=== PATIENT | male | born 1950 | race Caucasian/White ===

== ENCOUNTER 2016-11-12 09:43 | Observation (INO) | payer BC ==
[2016-11-12 10:56] LABS: Mean Cell Volume 84.4 fl (78-100); Mean Platelet Volume 9.4 fl (6-9.5); Platelet Count 216 K/mm3 (150-450); Red Blood Count 5.71 M/mm3 (4.1-5.6); Red Cell Distribution Width 14.4 % (11.5-14.0); White Blood Count 7.5 K/mm3 (4.0-10.5)
[2016-11-12] MEDS ORDERED: LOPRESSOR 5 MG/5 ML INJECTION IV ONE (11:34)
[2016-11-12 11:54] LABS: ALBUMIN 4.3 g/dL (3.4-5.0); ANION GAP 18.8 MEQ/L (5-15); BILIRUBIN,TOTAL 1.2 mg/dL (0.2-1.0); Carbon Dioxide 21.5 mEq/L (21-32); Potassium 4.9 mEq/L (3.5-5.1); Total Protein 6.8 gm/dL (6.4-8.2)
[2016-11-12] MEDS ORDERED: Lopressor 25MG Tab PO SCH (13:40)
--- NOTE | 2016-11-12 13:42 | PCM.HP ---
History of Present Illness - Chief Complaint Chief Complaint: palpitations Date: 11/12/16 History of Present Illness: is a 66 year old male. who presented to the clinic today with some intermittent wheezing he was having at night. On further questioning he has been having intermittent palpiations for several years and had an evaluation about 18 months ago with normal Ekg and a stress test with a fixed perfusion deficit. He was to follow up but started stating and aspirin and was felling well so did not come back until today. He was asymptomatic but on exam his HR was about 200. EKg was don with rate of 170 with aflutter. He was thus sent for direct admission for evaluation and rate control. He was not having any chest pain or shortness of breath and was ambulating well. No peripheral edema. Medications & Allergies Home Medications: Home Medication List Apixaban [Eliquis] 5 mg PO BID #60 tablet 11/12/16 [Rx] Lisinopril 10 mg [Zestril 10 MG] 10 mg PO DAILY 11/12/16 [History Confirmed 11/12/16] Metoprolol Tartrate 25 mg [Lopressor 25MG Tab] 25 mg PO BID #60 tab [Rx] Omeprazole 40 mg PO DAILY 11/12/16 [History Confirmed 11/12/16] Simvastatin [Zocor] 20 mg PO UD 11/12/16 [History Confirmed 11/12/16] Allergies/Adverse Reactions: Allergies Allergy/AdvReac Type Severity Reaction Status Date / Time No Known Drug Allergies Allergy Unverified 11/12/16 10:21 - Past Medical History Past Medical History: Yes Cardiac History: Arrhythmia, High Cholesterol, Hypertension Respiratory History: Sleep Apnea Musculoskelatal History: No Pertinent History GI Medical History: GERD History: No Pertinent History Pyscho-Social History: No Pertinent History Male Reproductive Disorders: Other Comment: testicular cyst removal. right hand cyst removal. right knee maniscus tear repair - Past Surgical History Past Surgical History: Yes Neuro Surgical History: No Pertinent History Cardiac History: No Pertinent History Respiratory Surgery: No Pertinent History GI Surgical History: Appendectomy Genitourinary Surgical Hx: No Pertinent History Musculskeletal Surgical Hx: Other Male Surgical History: Other Other Surgical History: testicular cyst removal. right hand cyst removal. right knee maniscus tear repair - Social History Smoking Status: Former smoker Alcohol: Occasionally Drug Use: none - Physical Exam Vital Signs: Vital Signs - 24 hr Temp Pulse Resp BP Pulse Ox 11/12/16 12:00 98.0 F 80 20 122/75 98 11/12/16 10:15 97.9 F 160 H 20 117/94 96 Oxygen-Last 24 hours O2 Percentage 2 Liters = 28% General Appearance: no apparent distress, alert Neurologic Exam: alert, oriented x 3, cooperative, normal mood/affect, nml cerebellar function, nml station & gait, sensation nml, No motor deficits Eye Exam: PERRL/EOMI, eyes nml inspection Ears, Nose, Throat Exam: normal ENT inspection, TMs normal, pharynx normal, moist mucous membranes Neck Exam: normal inspection, non-tender, supple, full range of motion Respiratory Exam: normal breath sounds, lungs clear, No respiratory distress Cardiovascular Exam: normal heart sounds, normal peripheral pulses, tachycardia , No murmur, No edema Gastrointestinal/Abdomen Exam: soft, normal bowel sounds, No tenderness, No mass Back Exam: normal inspection, normal range of motion, No CVA tenderness, No vertebral tenderness Extremity Exam: normal inspection, normal range of motion, pelvis stable Skin Exam: normal color, warm, dry, No rash Lymphatic Exam: No adenopathy Results - Labs Lab/Micro Results: Lab Results-Last 24 Hours 11/12/16 11/12/16 11/12/16 Range/Units 10:20 10:30 10:30 WBC 7.5 (4.0-10.5) K/mm3 RBC 5.71 H (4.1-5.6) M/mm3 Hgb 16.0 (12.5-18.0) gm/dl Hct 48.2 (42-50) % MCV 84.4 (78-100) fl MCH 28.0 (26-32) pg MCHC 33.2 (32-36) g/dl RDW 14.4 H (11.5-14.0) % Plt Count 216 (150-450) K/mm3 MPV 9.4 (6-9.5) fl Sodium (136-145) mEq/L Potassium (3.5-5.1) mEq/L Chloride (98-107) mEq/L Carbon Dioxide (21-32) mEq/L Anion Gap (5-15) MEQ/L BUN (9-20) mg/dL Creatinine (0.55-1.30) mg/dl Estimated GFR ML/MIN Glucose (70-110) MG/DL Calcium (8.5-10.1) mg/dL Magnesium 1.9 (1.8-2.4) mg/dL Total Bilirubin (0.2-1.0) mg/dL AST (15-37) U/L ALT (12-78) U/L Alkaline Phosphatase (46-116) U/L Troponin I 0.022 (0.000-0.056) ng/ml Serum Total Protein (6.4-8.2) gm/dL Albumin (3.4-5.0) g/dL TSH 3rd Generation (0.358-3.740) mIU/L 11/12/16 Range/Units 10:30 WBC (4.0-10.5) K/mm3 RBC (4.1-5.6) M/mm3 Hgb (12.5-18.0) gm/dl Hct (42-50) % MCV (78-100) fl MCH (26-32) pg MCHC (32-36) g/dl RDW (11.5-14.0) % Plt Count (150-450) K/mm3 MPV (6-9.5) fl Sodium 142 (136-145) mEq/L Potassium 4.9 (3.5-5.1) mEq/L Chloride 107 (98-107) mEq/L Carbon Dioxide 21.5 (21-32) mEq/L Anion Gap 18.8 H (5-15) MEQ/L BUN 32 H (9-20) mg/dL Creatinine 1.33 H (0.55-1.30) mg/dl Estimated GFR 57 ML/MIN Glucose 104 (70-110) MG/DL Calcium 9.1 (8.5-10.1) mg/dL Magnesium (1.8-2.4) mg/dL Total Bilirubin 1.20 H (0.2-1.0) mg/dL AST 27 (15-37) U/L ALT 31 (12-78) U/L Alkaline Phosphatase 81 (46-116) U/L Troponin I (0.000-0.056) ng/ml Serum Total Protein 6.8 (6.4-8.2) gm/dL Albumin 4.3 (3.4-5.0) g/dL TSH 3rd Generation 1.249 (0.358-3.740) mIU/L - Radiology Impressions Radiology Exams & Impressions: Radiology Procedures Category Date Time Status ECHO W/2D AND DOPPLER [US] Routine Exams 11/12/16 13:35 Ordered - Other Procedures and Tests Respiratory Therapy 11/12/16 13:22 EKG ROUTINE Assessment/Plan (1) Atrial flutter Current Visit: Yes Status: Acute Assessment & Plan: he responded to 5mg IV lopressor X 2 and rate returned to the 80's after about 2 hours began to trend back up had flutter with variable block initial troponin was negative will get echo today start eliquis and po metoprolol repeat troponin if remains negative and HR improved to <110 on the po medications will d/c to home We have appointment scheduled with Dr. Aguilera at patient request for 11/20/16 Code(s): I48.92 - UNSPECIFIED ATRIAL FLUTTER
[2016-11-12] MEDS: ELIQUIS PO SCH ×2 (13:56→22:06)
--- NOTE | 2016-11-12 14:00 | PCM.DCORD ---
- Discharge Discharge Date: 11/12/16 Disposition: Home, Self-Care Condition: Stable Prescriptions: New Apixaban [Eliquis] 5 mg PO BID #60 tablet Metoprolol Tartrate 25 mg [Lopressor 25MG Tab] 25 mg PO BID #60 tab Continue Simvastatin [Zocor] 20 mg PO UD Lisinopril 10 mg [Zestril 10 MG] 10 mg PO DAILY Omeprazole 40 mg PO DAILY Discontinued Aspirin 81 mg PO DAILY Naproxen 500 mg PO DAILY Follow up with: RIKY OLMOS [Primary Care Provider] - 1 Week BRAULIO BRAVO MD [NON-STAFF PHY W/O PRIVILEGES] - 1 Week
[2016-11-12] MEDS ORDERED: Lopressor 25MG Tab PO ONE (14:55)
[2016-11-12] MEDS ORDERED: Lactated Ringers 1,000 ML IV SCH (15:00)
--- NOTE | 2016-11-12 15:45 | ECHO ---
DATE OF PROCEDURE: 11/12/2016 CLINICAL INFORMATION: Atrial flutter. The M-mode 2D, and Doppler echocardiogram including color flow Doppler shows normal contractility of the left ventricle. The ejection fraction is calculated to be 62%. The left ventricle is normal in size with a dimension of 4.07 cm. The septal wall thickness is normal at 1.1 cm. The left ventricular posterior wall thickness is increased at 1.4 cm. The heart rate is 153 beats/minute. The aortic valve opens well. The mitral valve leaflets appear thickened. There is mild mitral regurgitation. There is mild aortic regurgitation. Left atrium is normal in size with a dimension of 3.9 cm. Intra-atrial septum is intact. The right atrium is normal. The right ventricle is normal. The pulmonic valve is not well visualized. The aortic root is normal at 3.4 cm. There is no pericardial effusion present. There is no thrombus in the left ventricular apex. IMPRESSION: 1) NORMAL CONTRACTILITY OF THE LEFT VENTRICLE. 2) MILD MITRAL REGURGITATION. 3) MILD TRICUSPID REGURGITATION. 4) MILD AORTIC REGURGITATION. 5) THE RIGHT VENTRICULAR SYSTOLIC PRESSURE IS NORMAL.
[2016-11-12] MEDS: CARDIZEM DRIP 100 MG/100 ML D5W 100 ML IV PRN (17:34)
[2016-11-12] MEDS ORDERED: Sodium Chloride 0.9% 500 ML 500 ML IV ONE (23:07)
[2016-11-13] MEDS: CARDIZEM DRIP 100 MG/100 ML D5W 100 ML IV PRN (07:06)
[2016-11-13] MEDS ORDERED: Sodium Chloride 0.9% 1000 ML 1,000 ML IV SCH (07:06)
[2016-11-13] MEDS: ELIQUIS PO SCH (09:55)
[2016-11-13 11:34] VITALS: O2SAT 96
[2016-11-13] MEDS: Cardizem CD 120 MG PO SCH (11:52)
[2016-11-13 11:59] VITALS: PULSE 101
[2016-11-13 12:00] VITALS: BP 128/68
--- NOTE | 2016-11-13 12:46 | PCM.DS ---
Discharge Summary Date of Admission: 11/12/16 09:43 Date of Discharge: 11/12/16 Admitting Physician: RIKY OLMOS Primary Care Provider: RIKY OLMOS Allergies Allergies No Known Drug Allergies Allergy (Unverified 11/12/16 10:21) Hospital Summary - Hospital Course Hospital Course: He presented to the office with some intermittent wheezing was found to have a pulse of about 200. EKG showed Aflutter with rvr at 160's. He was relatively asymptomatic. He was sent for direct admission to ICU. He had troponins trended negative cbc, cmp, tsh, mag unremarkable. He was started on Eliquis. He was given 5mg of metoprolol IV X 2 and improved to rate in the 80's and placed on po metoprolol but returned to the 160's and a second dose did not improve this. He was started on a cardizem gtt at this point metoprolol d/c and bp went low ( he had home lisinopril prior to presentation). He was given an IV fluid bolus. He remained asymptomatic. BP improved and aflutter improved overnight off the gtt but about 4 am returned to the 160's spontaneous. BP was better in am and was restarted gtt the rate was up to 12.5 and he had good control with intermittent spikes but asymptomatic. IT was stopped he was given cardizem 360 mg CD and observed and HR continued to be in the 80's at rest and with light activity would spike with sudden activity. He was set up with Dr. Aguilera cardiology follow up and will continue the cardizem and eliquis return for new or worsening symptoms. Echo was done without significant abnormalities. EKG showed aflutter and was reviewed pre/post rate control - Vitals & Intake/Output Vital Signs: Vital Signs Temperature 97.6 F 11/13/16 10:00 Pulse Rate 101 H 11/13/16 11:59 Respiratory Rate 16 11/13/16 11:59 Blood Pressure 128/68 11/13/16 11:59 O2 Sat by Pulse Oximetry 96 11/13/16 11:59 Oxygen-Last Documented O2 Percentage 2 Liters = 28% Intake & Output: Intake & Output 11/11/16 11/12/16 11/13/16 11/14/16 11:59 11:59 11:59 11:59 Intake Total 2286 Output Total 1590 Balance 696 Weight 87.9 kg 88.2 kg - Lab Result Diagrams: 11/12/16 10:30 11/12/16 10:30 Lab Results-Last 24 Hrs: Lab Results-Last 24 Hours 11/12/16 11/12/16 Range/Units 14:38 17:40 Troponin I 0.035 0.029 (0.000-0.056) ng/ml - Radiology Exams Ordered Rad Exams-Entire Visit: Radiology Procedures Category Date Time Status ECHO W/2D AND DOPPLER [US] Routine Exams 11/12/16 13:35 Draft - Procedures and Test Procedures and Tests throughout Hospitalization: Therapy Orders & Screens 11/12/16 13:22 EKG ROUTINE Comment: Diagnosis: SVT resolved Discharge Exam General Appearance: no apparent distress, alert Neurologic Exam: alert, oriented x 3, cooperative, normal mood/affect, nml cerebellar function, sensation nml, No motor deficits Skin Exam: normal color, warm, dry Eye Exam: PERRL, EOMI, eyes nml inspection Ears, Nose, Throat Exam: normal ENT inspection, pharynx normal, moist mucous membranes Neck Exam: normal inspection, non-tender, supple, full range of motion Respiratory Exam: normal breath sounds, lungs clear, No respiratory distress Cardiovascular Exam: regular rate/rhythm, irregular, No edema Gastrointestinal/Abdomen Exam: soft, No tenderness, No mass Extremity Exam: normal inspection, normal range of motion Back Exam: normal inspection, normal range of motion, No CVA tenderness, No vertebral tenderness Male Genitalia Exam: deferred Rectal Exam: deferred Final Diagnosis/Problem List - Final Discharge Diagnosis/Problem (1) Atrial flutter Current Visit: Yes Status: Acute - Discharge Discharge Date: 11/13/16 Disposition: Home, Self-Care Condition: Stable Prescriptions: New Diltiazem HCl [Diltiazem 24Hr Cd] 360 mg PO DAILY #30 cap.er.24h Pravastatin Sodium 40 mg PO DAILY #30 tablet Continue Omeprazole 40 mg PO DAILY Apixaban [Eliquis] 5 mg PO BID #60 tablet Discontinued Aspirin 81 mg PO DAILY Simvastatin [Zocor] 20 mg PO UD Lisinopril 10 mg [Zestril 10 MG] 10 mg PO DAILY Naproxen 500 mg PO DAILY Follow up with: RIKY OLMOS [Primary Care Provider] - 1 Week BRAULIO AGUILERA MD [NON-STAFF PHY W/O PRIVILEGES] - 11/20/16 9:45 am
== END 2016-11-13 14:15 | disposition home or self-care (01) ==
LOC: ICU 09:43
PROVIDERS: ADMIT Family Medicine; ATTEND Family Medicine
DX: I48.92 Unspecified atrial flutter (principal); I10 Essential (primary) hypertension; G47.30 Sleep apnea, unspecified; K21.9 Gastro-esophageal reflux disease without esophagitis; Z79.899 Other long term (current) drug therapy
CPT/HCPCS: 36415; 80053; 83735; 84443; 84484; 85027; 93005; 93268; 93306; G0378; A9270-GY

== ENCOUNTER 2022-09-01 15:47 | Emergency (ER) | payer BC ==
--- NOTE | 2022-09-01 16:25 | ERPHSYRPT ---
- History of Present Illness Time Seen by Provider: 09/01/22 16:25 Historian: patient, family Exam Limitations: no limitations Patient Subjective Stated Complaint: Pt had a sudden onset of left sided abdominal pain with N&V that he rates 10/10 that radiates to his testicle Triage Nursing Assessment: Pt brought to the ER by his , hypertensive, rates pain as 10/10, worst pain he has ever been in, states the pain didn't begin in his back but it feels like it is going to it now, pulsles normal, skin n/w/d, not tender with palpatation, denies pain with urination, denies issues with stools, N&V today, no history of a kidney stone Physician History: Abrupt onset today of left renal colic. NO hx of kidney stones. Timing/Duration: today Activities at Onset: none Quality: sharpness, stabbing Abdominal Pain Onset Location: LLQ, flank Pain Radiation: groin Severity of Pain-Max: moderate Severity of Pain-Current: moderate Modifying Factors: Improves With: nothing Associated Symptoms: denies symptoms Previous symptoms: no prior history Allergies/Adverse Reactions: No Known Drug Allergies Allergy (Verified 09/01/22 16:11) Home Medications: Lisinopril 20 mg [Zestril 20 MG] 20 mg PO DAILY 09/01/22 [History] PANTOPRAZOLE 40 mg Tablet [Protonix 40MG Tablet] 40 mg PO QAM 09/01/22 [History] Tamsulosin HCl 0.4 mg [Flomax 0.4 MG] 0.4 mg PO DAILY 09/01/22 [History] Vit C/E/Zn/Coppr/Lutein/Zeaxan [Preservision Areds 2 Softgel] 1 each PO DAILY 09/01/22 [History] Hx Influenza Vaccination/Date Given: Yes Hx Pneumococcal Vaccination/Date Given: Yes Travel Risk - International Travel Have you traveled outside of the country in past 3 weeks: No - Coronavirus Screening Are you exhibiting any of the following symptoms?: No Close contact with a COVID-19 positive Pt in past 14-21 Days: No - Vaccine Status Have you recieved a Covid-19 vaccination: No - Review of Systems Constitutional: No Symptoms Eyes: No Symptoms Ears, Nose, & Throat: No Symptoms Respiratory: No Symptoms Cardiac: No Symptoms Abdominal/Gastrointestinal: No Symptoms Genitourinary Symptoms: No Symptoms, Flank Pain Musculoskeletal: No Symptoms Skin: No Symptoms Neurological: No Symptoms Psychological: No Symptoms Endocrine: No Symptoms Hematologic/Lymphatic: No Symptoms Immunological/Allergic: No Symptoms All Other Systems: Reviewed and Negative - Past Medical History Pertinent Past Medical History: Yes Cardiac History: Arrhythmia, High Cholesterol, Hypertension Respiratory History: Sleep Apnea Musculoskeletal History: No Pertinent History GI Medical History: GERD History: No Pertinent History Psycho-Social History: No Pertinent History Male Reproductive Disorders: Other Other Medical History: testicular cyst removal. right hand cyst removal. right knee maniscus tear repair - Past Surgical History Past Surgical History: Yes Neuro Surgical History: No Pertinent History Cardiac: Other Respiratory: No Pertinent History Gastrointestinal: Appendectomy Genitourinary: No Pertinent History Musculoskeletal: Other Male Surgical History: Other Other Surgical History: testicular cyst removal. right hand cyst removal. right knee maniscus tear repair. heart ablasion - Social History Smoking Status: Former smoker Exposure to second hand smoke: No Drug Use: none Patient Lives Alone: No - Nursing Vital Signs Nursing Vital Signs: Initial Vital Signs Temperature 97.4 F 09/01/22 15:59 Pulse Rate 76 09/01/22 15:59 Blood Pressure 180/85 09/01/22 15:59 O2 Sat by Pulse Oximetry 96 09/01/22 15:59 Pain Scale Pain Intensity 4 - Physical Exam General Appearance: moderate distress Eye Exam: PERRL/EOMI Ears, Nose, Throat Exam: normal ENT inspection Neck Exam: normal inspection, non-tender Respiratory Exam: normal breath sounds, lungs clear Cardiovascular Exam: regular rate/rhythm, normal heart sounds, pulse deficit Gastrointestinal/Abdomen Exam: soft, other (left renal colic pain) Rectal Exam: deferred Back Exam: normal inspection Extremity Exam: normal inspection, normal range of motion Neurologic Exam: alert, oriented x 3, cooperative Skin Exam: normal color SpO2 Interpretation: normal SpO2: 96 O2 Delivery: Room Air - Course Nursing assessment & vital signs reviewed: Yes EKG Interpreted by Me: RATE (68), Sinus Rhythm, NORMAL AXIS, NORMAL INTERVALS, NORMAL QRS, Non-specific ST Changes, Other (LAFB) - CT Exams Abdomen/Pelvis CT Interpretation: Tele-radiologist Report, Other (3-4 mm stone mid left ureter with some secondary hydronephrosis) Ordered Tests: Active Orders 24 hr Category Date Time Status ABDOMEN AND PELVIS W/0 CONTRAS [CT] Stat Exams 09/01/22 16:35 Completed CBC W DIFF Stat Lab 09/01/22 16:49 Completed CMP Stat Lab 09/01/22 16:49 Completed CULTURE,URINE Stat Lab 09/01/22 17:43 Received UA W/RFX UR CULTURE Stat Lab 09/01/22 17:43 Completed Medication Summary Generic Name Dose Route Start Last Admin Trade Name Freq PRN Reason Stop Dose Admin Ceftriaxone Sodium/Dextrose 1 g in 50 mls @ 100 mls/hr 09/01/22 18:07 Rocephin 1 Gm-D5w 50 Ml Bag IV 09/01/22 18:36 STAT STA Discontinued Medications Generic Name Dose Route Start Last Admin Trade Name Freq PRN Reason Stop Dose Admin Hydromorphone HCl 1 mg 09/01/22 16:33 09/01/22 16:36 Hydromorphone 1 Mg/1ml Inj IV 09/01/22 16:34 1 mg STAT ONE Administration Hydromorphone HCl Confirm 09/01/22 16:36 Hydromorphone 1 Mg/1ml Inj Administered 09/01/22 16:37 Dose 1 mg .ROUTE .STK-MED ONE Ceftriaxone Sodium/Dextrose Confirm 09/01/22 18:30 Rocephin 1 Gm-D5w 50 Ml Bag Administered 09/01/22 18:31 Dose 1 g in 50 mls @ ud IV .STK-MED ONE Prochlorperazine Edisylate 10 mg 09/01/22 16:33 09/01/22 16:37 Prochlorperazine Edisylate 10 Mg/2 Ml Vial IV 09/01/22 16:34 10 mg STAT ONE Administration Prochlorperazine Edisylate Confirm 09/01/22 16:36 Prochlorperazine Edisylate 10 Mg/2 Ml Vial Administered 09/01/22 16:37 Dose 10 mg .ROUTE .STK-MED ONE Lab/Rad Data: Laboratory Result Diagrams 09/01/22 16:49 09/01/22 16:49 Laboratory Results 09/01/22 09/01/22 09/01/22 Range/Units 17:43 16:49 16:49 WBC 10.1 (4.0-10.5) x10^3/uL RBC 5.09 (4.1-5.6) x10^6/uL Hgb 14.6 (12.5-18.0) g/dL Hct 44.8 (42-50) % MCV 88.0 (78-100) fL MCH 28.7 (26-32) pg MCHC 32.6 (32-36) g/dL RDW 13.6 (11.5-14.0) % Plt Count 201 (150-450) x10^3/uL MPV 8.9 (7.5-11.0) fL Gran % 89.4 H (36.0-66.0) % Immature Gran % (Auto) 0.5 H (0.00-0.4) % Nucleat RBC Rel Count 0.0 (0.00-0.1) % Eos # (Auto) 0 (0-0.5) x10^3/uL Immature Gran # (Auto) 0.05 H (0.00-0.03) x10^3u/L Absolute Lymphs (auto) 0.64 L (1.0-4.6) x10^3/uL Absolute Monos (auto) 0.35 (0.0-1.3) x10^3/uL Absolute Nucleated RBC 0.00 (0.00-0.01) x10^3u/L Lymphocytes % 6.4 L (24.0-44.0) % Monocytes % 3.5 (0.0-12.0) % Eosinophils % 0.0 (0.00-5.0) % Basophils % 0.2 (0.0-0.4) % Absolute Granulocytes 8.99 H (1.4-6.9) x10^3/uL Basophils # 0.02 (0-0.4) x10^3/uL Sodium 140 (137-145) mmol/L Potassium 4.8 (3.5-5.1) mmol/L Chloride 102 (98-107) mmol/L Carbon Dioxide 30 (22-30) mmol/L Anion Gap 11.7 (5-15) MEQ/L BUN 31 H (9-20) mg/dL Creatinine 1.44 H (0.66-1.25) mg/dL Estimated GFR 51.1 ML/MIN Glucose 118 H (74-106) mg/dL Calcium 9.2 (8.4-10.2) mg/dL Total Bilirubin 1.30 (0.2-1.3) mg/dL AST 38 (17-59) U/L ALT 32 (0-50) U/L Alkaline Phosphatase 90 (38-126) U/L Serum Total Protein 7.7 (6.3-8.2) g/dL Albumin 4.5 (3.5-5.0) g/dL Urine Color Yellow (Yellow) Urine Appearance Clear (Clear) Urine pH 7.5 (4.6-8.0) Ur Specific [place] 1.025 (1.005-1.030) Urine Protein Trace A (Negative) Urine Glucose (UA) Negative (Negative) mg/dL Urine Ketones Trace A (Negative) Urine Blood Small A (Negative) Urine Nitrite Negative (Negative) Urine Bilirubin Negative (Negative) Urine Urobilinogen 1.0 A (0.2) mg/dL Ur Leukocyte Esterase Trace A (Negative) U Hyaline Cast (Auto) NONE SEEN (0-2) /LPF Urine Microscopic RBC 11-20 A (0-5) /HPF Urine Microscopic WBC 0-2 (0-5) /HPF Ur Epithelial Cells None Seen (None Seen) /HPF Urine Bacteria None Seen (None Seen) /HPF Urine Culture Reflexed YES (NO) - Progress Progress: improved Progress Note: 09/01/22 18:35 [place] much better with pain med. He has a urologist that he can call in the morning. He is already taking flomax. 09/01/22 18:51 Counseled pt/family regarding: lab results, diagnosis, need for follow-up, rad results Medical Desision Making - Independent Historian Additional History obtained from: Spouse - Diagnostic Testing Radiological Interpretation: Teleradiologist Report - Risk of complications Low Risk: Low risk of morbidity from additional dx testing or treatment - Departure Departure Disposition: Home Clinical Impression: Ureteral calculus, left Condition: Stable Critical Care Time: No Referrals: LAURA DENG MD [Primary Care Provider] - Follow up/PCP as directed Instructions: Renal Colic (DC) Additional Instructions: Increase fluids. Strain urine. Contact your urologist tomorrow. Prescriptions: Ondansetron ODT 4 MG [Zofran Odt 4 mg] 4 mg PO Q6H PRN PRN #10 tablet PRN Reason: Nausea Cefuroxime Axetil [Cefuroxime] 250 mg PO BID #14 tablet Hydrocodone/Acetaminophen [Hydrocodone-Acetamin 7.5-325] 1 each PO Q4-6HPRN PRN #10 tablet MDD 4 PRN Reason: Moderate Pain
[2022-09-01] MEDS ORDERED: Hydromorphone 1 mg/ml Injection IV ONE (16:33)
[2022-09-01] MEDS ORDERED: Compazine 10 MG/2 ML IV ONE (16:33)
[2022-09-01] MEDS ORDERED: Hydromorphone 1 mg/ml Injection ONE (16:36)
[2022-09-01] MEDS ORDERED: Compazine 10 MG/2 ML ONE (16:36)
[2022-09-01 16:51] LABS: Absolute Neutrophil Ct (ANC) 8.99 x10^3/uL (1.4-6.9); BASOPHIL % 0.2 % (0.0-0.4); Basophil (Absolute #) 0.02 x10^3/uL (0-0.4); Eosinophil (Absolute #) 0 x10^3/uL (0-0.5); Hematocrit 44.8 % (42-50); Hemoglobin 14.6 g/dL (12.5-18.0); IMMATURE GRAN # 0.05 x10^3u/L (0.00-0.03); IMMATURE GRAN % 0.5 % (0.00-0.4); Lymphocyte (Absolute #) 0.64 x10^3/uL (1.0-4.6); Lymphocytes % 6.4 % (24.0-44.0); Mean Corpuscular Hemoglobin 28.7 pg (26-32); Mean Corpuscular Hgb Concent. 32.6 g/dL (32-36); Mean Platelet Volume 8.9 fL (7.5-11.0); Monocyte (Absolute #) 0.35 x10^3/uL (0.0-1.3); Monocytes % 3.5 % (0.0-12.0); Neutrophil % 89.4 % (36.0-66.0); Platelet Count 201 x10^3/uL (150-450); Red Blood Count 5.09 x10^6/uL (4.1-5.6); Red Cell Distribution Width 13.6 % (11.5-14.0); White Blood Count 10.1 x10^3/uL (4.0-10.5)
[2022-09-01 17:07] LABS: ALBUMIN 4.5 g/dL (3.5-5.0); ANION GAP 11.7 MEQ/L (5-15); BILIRUBIN,TOTAL 1.3 mg/dL (0.2-1.3); Calcium 9.2 mg/dL (8.4-10.2); Creatinine 1 1.44 mg/dL (0.66-1.25); EST GLOMERULAR FILTRATION RATE 51.1 ML/MIN; Potassium 4.8 mmol/L (3.5-5.1); Total Protein 7.7 g/dL (6.3-8.2)
--- NOTE | 2022-09-01 17:48 | XRAY ---
CLINICAL HISTORY:LLQ abd pain; COMPARISON:None; TECHNIQUES:Contiguous, multislice, nonenhanced CT scan of the abdomen and pelvis in the axial plane with multiplanar reconstructions. CTDI: 16 mGy, DLP: 554 mGy*cm; FINDINGS: Limited organ parenchymal evaluation within the limitations of non-contrast study. Normal-sized liver showing homogeneous attenuation. Cystic attenuation lesion in the right lobe of liver segment 4A measuring about 3 x 3.4 cm suggesting hepatic cyst. No intrahepatic biliary dilatation. Gallbladder shows no definite calculi inside. Small hiatal hernia noted. Pancreas appear unremarkable. Normal-sized spleen showing multiple calcified densities presenting calcified granulomas. No adrenal mass. There is moderate hydronephrosis in right kidney and moderate to severe hydronephrosis in left kidney. Perinephric fat stranding noted mainly around the left kidney. There is calcific density measuring about 3 mm mostly in the line of left mid ureter. Multiple pelvic phleboliths seen. No ascites. No para-aortic lymphadenopathy. Atherosclerotic calcification of the abdominal aorta and iliac vessels. Noncomplicated colonic diverticulosis mainly involving sigmoid and descending colon. No CT evidence of diverticulitis. Fat-containing umbilical hernia seen. Partially filled urinary bladder, appear free from intraluminal stones, obvious mass or diverticular outpouching. Enlarged prostate measuring about 6.1 X5.1X 6.1 cm showing calcific foci within it. Spondylodegenerative changes in the visualized spine showing degenerative disc disease mainly at L2-L3. Retrolisthesis of L2 over L3 noted. Visualized sections of lower chest shows no focal mass or consolidation. Subpleural groundglass or radiation in right lower lung lobe with mild posterior pleural thickening in lung bases. IMPRESSION: 1. Limited organ parenchymal evaluation within the limitations of noncontrast study. 2. Cystic attenuation lesion in the right lobe of liver segment 4A measuring about 3X 3.4 cm suggesting hepatic cyst. 3. Moderate right hydronephrosis. 4. Moderate hydronephrosis in left kidney mostly secondary to calculus 3 to 4 mm in size in the middle third aspect of left ureter causing left obstructive uropathy. CT urogram may be recommended for further evaluation if clinically needed. 5. Perinephric fat stranding mainly around left kidney mostly due to acute process. 6. Noncomplicated colonic diverticulosis mainly involving sigmoid and descending colon without evidence of diverticulitis. 7. Enlarged prostate showing calcific foci within it. 8. Rest of the findings as detailed above. Electronically Signed by: Gilma Simmons MD. (09/01/2022 16:41:40 [employer])
[2022-09-01 17:53] LABS: Appearance Clear (Clear); Bacteria None Seen /HPF (None Seen); Bilirubin Negative (Negative); Blood Small (Negative); Epithelial Cells None Seen /HPF (None Seen); Glucose, Urine Negative (Negative); Hyaline Casts NONE SEEN /LPF (0-2); Ketones Trace (Negative); Leukocyte Esterase Trace (Negative); Nitrite Negative (Negative); Ph 7.5 (4.6-8.0); Protein,Urine Dip Trace (Negative); Specific Gravity 1.025 (1.005-1.030); WBC 0-2 /HPF (0-5)
[2022-09-01 17:58] LABS: ADD URINE CULTURE? YES (NO)
[2022-09-01] MEDS ORDERED: ROCEPHIN 1 Gm-D5w 50 ml Bag** 1 G/50 ML IVPB IV STA (18:07)
[2022-09-01] MEDS ORDERED: ROCEPHIN 1 Gm-D5w 50 ml Bag** 1 G/50 ML IVPB IV ONE (18:30)
[2022-09-01] MEDS ORDERED: NORCO 7.5/325 MG TAB PO PRN (18:48)
[2022-09-01] MEDS ORDERED: NORCO 7.5/325 MG TAB ONE (19:22)
[2022-09-01 19:40] VITALS: BP 161/81; PULSE 78; O2SAT 97
== END 2022-09-01 19:41 | disposition home or self-care (01) ==
LOC: ED 15:47
DX: N13.2 Hydronephrosis with renal and ureteral calculous obstruction (principal); R11.2 Nausea with vomiting, unspecified; E78.5 Hyperlipidemia, unspecified; I10 Essential (primary) hypertension; Z79.891 Long term (current) use of opiate analgesic; Z79.899 Other long term (current) drug therapy
CPT/HCPCS: 36000; 36415; 74176; 80053; 81001; 85025; 87086; 96365; 96374; 96375; 99284; J0696; J1170; A9270-GY

== ENCOUNTER 2022-09-09 14:16 | Emergency (ER) | payer BC, MEDICARE ==
[2022-09-09] MEDS ORDERED: TORAdol 30 mg Injection IM ONE (14:53)
--- NOTE | 2022-09-09 14:58 | ERPHSYRPT ---
- History of Present Illness Time Seen by Provider: 09/09/22 14:54 Historian: patient Exam Limitations: no limitations Patient Subjective Stated Complaint: Constipation Triage Nursing Assessment: Patient ambulated back to ED and transferred self to bed. Patient A+O X 3. Patient's skin pink, warm and dry. Patient complains of constipation for several days. Patient had recent kidney stone and procedure on 09/01/2022 and has been taking [place] 7.5/325mg every 8 hours as needed. Patient states his bowels have not moved since then. Patient complains of abdominal pain 02/11. Abdomen round and distended with BS X 4. Physician History: Patient is a 71-year-old male presents to our ED for evaluation of abdominal distention. Patient believes he is constipated. Patient states that he had a kidney stone on 09/01. Patient was started on [place] 7/325 at that time. Since then patient has not had a bowel movement. The following the kidney stone was retrieved. A ureteral stent was applied. Pain due to the stent was treated with [place] as well. Patient states this worsened his constipation. The ureteral stent was removed today. However patient states he cannot take the discomfort from the abdominal distention. Patient has taken Dulcolax and MiraLAX without success. Symptoms are progressive. Symptoms are moderate in intensity. No specific worsening improving factors. at bedside. They voiced no other complaints or concerns at this time. Portions of this note were created with voice recognition technology. There may be grammatical, spelling, punctuation or sound alike errors Timing/Duration: week(s) (1 week) Activities at Onset: none Quality: aching Abdominal Pain Onset Location: generalized abdomen Pain Radiation: no radiation Severity of Pain-Max: moderate Severity of Pain-Current: mild Modifying Factors: Improves With: nothing Associated Symptoms: denies symptoms Previous symptoms: no prior history Allergies/Adverse Reactions: No Known Drug Allergies Allergy (Verified 09/09/22 14:20) Home Medications: Lisinopril 20 mg [Zestril 20 MG] 20 mg PO DAILY 09/01/22 [History] PANTOPRAZOLE 40 mg Tablet [Protonix 40MG Tablet] 40 mg PO QAM 09/01/22 [History] Tamsulosin HCl 0.4 mg [Flomax 0.4 MG] 0.4 mg PO DAILY 09/01/22 [History] Vit C/E/Zn/Coppr/Lutein/Zeaxan [Preservision Areds 2 Softgel] 1 each PO DAILY 09/01/22 [History] Hx Tetanus, Diphtheria Vaccination/Date Given: No Hx Influenza Vaccination/Date Given: Yes Hx Pneumococcal Vaccination/Date Given: Yes Travel Risk - International Travel Have you traveled outside of the country in past 3 weeks: No - Coronavirus Screening Are you exhibiting any of the following symptoms?: No Close contact with a COVID-19 positive Pt in past 14-21 Days: No - Vaccine Status Have you recieved a Covid-19 vaccination: No - Review of Systems Constitutional: No Symptoms, No Fever, No Chills Eyes: No Symptoms Ears, Nose, & Throat: No Symptoms Respiratory: No Symptoms, No Cough, No Dyspnea Cardiac: No Symptoms, No Chest Pain, No Edema, No Syncope Abdominal/Gastrointestinal: No Symptoms, No Abdominal Pain, No Nausea, No Vomiting, No Diarrhea Genitourinary Symptoms: No Symptoms, No Dysuria Musculoskeletal: No Symptoms, No Back Pain, No Neck Pain Skin: No Symptoms, No Rash Neurological: No Symptoms, No Dizziness, No Focal Weakness, No Sensory Changes Psychological: No Symptoms Endocrine: No Symptoms Hematologic/Lymphatic: No Symptoms Immunological/Allergic: No Symptoms All Other Systems: Reviewed and Negative - Past Medical History Pertinent Past Medical History: Yes Cardiac History: Arrhythmia, High Cholesterol, Hypertension Respiratory History: Sleep Apnea Musculoskeletal History: No Pertinent History GI Medical History: GERD History: No Pertinent History Psycho-Social History: No Pertinent History Male Reproductive Disorders: Other Other Medical History: testicular cyst removal. right hand cyst removal. right knee maniscus tear repair - Past Surgical History Past Surgical History: Yes Neuro Surgical History: No Pertinent History Cardiac: Other Respiratory: No Pertinent History Gastrointestinal: Appendectomy Genitourinary: No Pertinent History Musculoskeletal: Other Male Surgical History: Other Other Surgical History: testicular cyst removal. right hand cyst removal. rig ht knee maniscus tear repair. heart ablasion - Social History Smoking Status: Former smoker Exposure to second hand smoke: No Drug Use: none Patient Lives Alone: No - Nursing Vital Signs Nursing Vital Signs: Initial Vital Signs Temperature 98.1 F 09/09/22 14:22 Pulse Rate 80 09/09/22 14:22 Respiratory Rate 19 09/09/22 14:22 Blood Pressure 174/82 09/09/22 14:22 O2 Sat by Pulse Oximetry 94 L 09/09/22 14:22 Pain Scale Pain Intensity 2 - Physical Exam General Appearance: no apparent distress, alert Eye Exam: PERRL/EOMI, eyes nml inspection Ears, Nose, Throat Exam: normal ENT inspection, TMs normal, pharynx normal, moist mucous membranes Neck Exam: normal inspection, non-tender, supple, full range of motion Respiratory Exam: normal breath sounds, lungs clear, airway intact, No respiratory distress Cardiovascular Exam: regular rate/rhythm, normal heart sounds, normal peripheral pulses Gastrointestinal/Abdomen Exam: soft, distention, other (Diffuse abdominal tenderness.), No mass, No guarding, No pulsatile mass Back Exam: normal inspection, normal range of motion, No CVA tenderness, No vertebral tenderness Extremity Exam: normal inspection, normal range of motion, pelvis stable Neurologic Exam: alert, oriented x 3, cooperative, normal mood/affect, nml cerebellar function, sensation nml, No motor deficits Skin Exam: normal color, warm, dry Lymphatic Exam: No adenopathy SpO2 Interpretation: normal SpO2: 94 O2 Delivery: Room Air - Course Nursing assessment & vital signs reviewed: Yes - CT Exams Abdomen/Pelvis CT Interpretation: Tele-radiologist Report (Obstructive uropathy hydronephrosis hydroureter kidney edema with perinephric stranding enlarged prostate diverticulosis atherosclerotic disease) Ordered Tests: Active Orders 24 hr Category Date Time Status Khan [Catheter-Lakeland Khan] STAT Care 09/09/22 16:52 Active ABDOMEN AND PELVIS W/0 CONTRAS [CT] Stat Exams 09/09/22 14:35 Completed CBC W DIFF Stat Lab 09/09/22 17:15 Completed CMP Stat Lab 09/09/22 16:52 Completed UA W/RFX UR CULTURE Stat Lab 09/09/22 15:00 Completed Medication Summary Generic Name Dose Route Start Last Admin Trade Name Freq PRN Reason Stop Dose Admin Ceftriaxone Sodium/Dextrose 1 g in 50 mls @ 100 mls/hr 09/09/22 18:06 09/09/22 18:25 Rocephin 1 Gm-D5w 50 Ml Bag IV 09/09/22 18:35 100 mls/hr STAT STA 100 mls/hr Administration Discontinued Medications Generic Name Dose Route Start Last Admin Trade Name Davian PRN Reason Stop Dose Admin Ceftriaxone Sodium/Dextrose Confirm 09/09/22 18:25 Rocephin 1 Gm-D5w 50 Ml Bag Administered 09/09/22 18:26 Dose 1 g in 50 mls @ ud IV .STK-MED ONE Ketorolac Tromethamine 30 mg 09/09/22 14:53 09/09/22 15:06 Ketorolac Tromethamine 30 Mg/Ml Inj IM 09/09/22 14:54 30 mg STAT ONE Administration Ketorolac Tromethamine Confirm 09/09/22 15:05 Ketorolac Tromethamine 30 Mg/Ml Inj Administered 09/09/22 15:06 Dose 30 mg .ROUTE .STK-MED ONE Lab/Rad Data: Laboratory Result Diagrams 09/09/22 17:15 09/09/22 16:52 Laboratory Results 09/09/22 09/09/22 09/09/22 Range/Units 17:15 16:52 15:00 WBC 8.5 (4.0-10.5) x10^3/uL RBC 3.99 L (4.1-5.6) x10^6/uL Hgb 11.4 L (12.5-18.0) g/dL Hct 34.6 L (42-50) % MCV 86.7 (78-100) fL MCH 28.6 (26-32) pg MCHC 32.9 (32-36) g/dL RDW 14.3 H (11.5-14.0) % Plt Count 301 (150-450) x10^3/uL MPV 8.0 (7.5-11.0) fL Gran % 82.0 H (36.0-66.0) % Immature Gran % (Auto) 1.5 H (0.00-0.4) % Nucleat RBC Rel Count 0.0 (0.00-0.1) % Eos # (Auto) 0.08 (0-0.5) x10^3/uL Immature Gran # (Auto) 0.13 H (0.00-0.03) x10^3u/L Absolute Lymphs (auto) 0.56 L (1.0-4.6) x10^3/uL Absolute Monos (auto) 0.73 (0.0-1.3) x10^3/uL Absolute Nucleated RBC 0.00 (0.00-0.01) x10^3u/L Lymphocytes % 6.6 L (24.0-44.0) % Monocytes % 8.6 (0.0-12.0) % Eosinophils % 0.9 (0.00-5.0) % Basophils % 0.4 (0.0-0.4) % Absolute Granulocytes 6.99 H (1.4-6.9) x10^3/uL Basophils # 0.03 (0-0.4) x10^3/uL Sodium 134 L (137-145) mmol/L Potassium 5.2 H (3.5-5.1) mmol/L Chloride 98 (98-107) mmol/L Carbon Dioxide 25 (22-30) mmol/L Anion Gap 16.4 H (5-15) MEQ/L BUN 59 H (9-20) mg/dL Creatinine 1.67 H (0.66-1.25) mg/dL Estimated GFR 43.1 ML/MIN Glucose 110 H (74-106) mg/dL Calcium 8.5 (8.4-10.2) mg/dL Total Bilirubin 1.20 (0.2-1.3) mg/dL AST 68 H (17-59) U/L ALT 97 H (0-50) U/L Alkaline Phosphatase 241 H (38-126) U/L Serum Total Protein 6.8 (6.3-8.2) g/dL Albumin 3.4 L (3.5-5.0) g/dL Urine Color Yellow (Yellow) Urine Appearance Cloudy A (Clear) Urine pH 5.5 (4.6-8.0) Ur Specific [place] 1.010 (1.005-1.030) Urine Protein 30 (Negative) Urine Glucose (UA) Negative (Negative) mg/dL Urine Ketones Negative (Negative) Urine Blood Large A (Negative) Urine Nitrite Negative (Negative) Urine Bilirubin Negative (Negative) Urine Urobilinogen 0.2 (0.2) mg/dL Ur Leukocyte Esterase Small A (Negative) U Hyaline Cast (Auto) NONE SEEN (0-2) /LPF Urine Microscopic RBC 6-10 A (0-5) /HPF Urine Microscopic WBC 6-10 A (0-5) /HPF Ur Epithelial Cells Rare (None Seen) /HPF Urine Bacteria Few A (None Seen) /HPF Urine Culture Reflexed NO (NO) - Progress Progress: improved Progress Note: Case discussed with Dr. Tova Adkins ER physician at [facility] who accepts transfer. 09/09/22 18:20 Patient 71-year-old male presents to our ED for evaluation of progressive abdominal pain which she believed was constipation. Work-up reveals struct of uropathy with acute renal injury urinary tract infection. Patient urologist is Dr. Sidhu. We will transfer patient to [facility] for further evaluation. As patient may require urology and nephrology consultation. Plan of care discussed with patient. Patient agrees to transfer to [facility] for further evaluation and treatment. Obstructive uropathy observed on CT abdomen pelvis. Khan catheter placed. Approximately 1200 cc of urine obtained. UA reveals urinary tract infection. Patient received a dose of Rocephin. Toradol administered for pain control prior to obtaining the labs. Complexity of problem addressed is high, severe exacerbation or threat to bodily function. No critical care time. Complexity of data reviewed and analyzed is moderate. Test ordered. Test reviewed. Dr. Arteaga independently reviewed and analyzed testing including UA which revealed a urinary tract infection. Laboratory work-up reveals acute renal injury with mild hyperkalemia. Plan of care discussed with receiving ER physician at [facility] who accepts transfer. Risk of complication and or risk morbidity/mortality of patient management is high. Patient requires hospitalization for further evaluation and treatment. Patient agrees to transfer to [facility] for further evaluation and treatment. Plan of care established via shared decision making. Time spent to transfer patient is approximately 15 minutes. Vital stable. Portions of this note were created with voice recognition technology. There may be grammatical, spelling, punctuation or sound alike errors 09/09/22 18:35 Counseled pt/family regarding: lab results, diagnosis, rad results - Departure Departure Disposition: Transfer Clinical Impression: Obstructive uropathy, Hypokalemia, Acute renal injury, Urinary tract infection, Prostate hypertrophy, Hiatal hernia, Diverticulosis, Hepatic cyst, Hydronephrosis, Large prostate, Atherosclerotic heart disease Condition: Stable Critical Care Time: No Referrals: LAURA DENG MD [Primary Care Provider] - Follow up/PCP as directed
[2022-09-09] MEDS ORDERED: TORAdol 30 mg Injection ONE (15:05)
--- NOTE | 2022-09-09 16:37 | XRAY ---
Indication: Constipation 8-9 days. Status post right ureteral stent removal. Multiple contiguous axial images obtained through the abdomen and pelvis without contrast. Comparison: September 01, 2022 Lung bases again demonstrates mild bibasilar subsegmental atelectasis/scarring. Heart not enlarged. Stable small hiatal hernia. Noncontrasted stomach and bowel loops nonobstructed. There is increasing mild fecal debris predominantly in the ascending and proximal transverse colon. Remaining distal colon demonstrates little to no fecal debris. Stable sigmoid diverticulosis without diverticulitis. Stable hepatic cysts. Both kidneys demonstrates worsening significant hydronephrosis with worsening bilateral perinephric stranding. No distal ureteral calculus. Urinary bladder is now massively distended with urine concerning for outlet obstruction versus neurogenic bladder. Query subtle intraluminal urinary bladder debris/blood clots. Again enlarged prostate gland impresses on the base of the bladder. Remaining liver, gallbladder, pancreas, spleen, and adrenal glands are unremarkable for noncontrast exam. Again mild scattered aortoiliac calcifications without AAA. Impression: 1. New massively distended urinary bladder concerning for outlet obstruction versus neurogenic bladder. Query subtle intraluminal debris/blood clots. Subsequent worsening bilateral hydronephrosis and bilateral renal edema without calculus. 2. Stable enlarged prostate gland, hiatal hernia, sigmoid diverticulosis, hepatic cysts, and arteriosclerotic disease.
[2022-09-09 17:18] LABS: Appearance Cloudy (Clear); Bilirubin Negative (Negative); Blood Large (Negative); Epithelial Cells Rare /HPF (None Seen); Glucose, Urine Negative (Negative); Hyaline Casts NONE SEEN /LPF (0-2); Ketones Negative (Negative); Leukocyte Esterase Small (Negative); Nitrite Negative (Negative); Ph 5.5 (4.6-8.0); Protein,Urine Dip 30 (Negative); Urobilinogen 0.2 mg/dL (0.2)
[2022-09-09 17:19] LABS: ADD URINE CULTURE? NO (NO); Bacteria Few /HPF (None Seen)
[2022-09-09 17:22] LABS: Absolute Neutrophil Ct (ANC) 6.99 x10^3/uL (1.4-6.9); BASOPHIL % 0.4 % (0.0-0.4); Basophil (Absolute #) 0.03 x10^3/uL (0-0.4); Eosinophil % 0.9 % (0.00-5.0); Eosinophil (Absolute #) 0.08 x10^3/uL (0-0.5); Hematocrit 34.6 % (42-50); Hemoglobin 11.4 g/dL (12.5-18.0); IMMATURE GRAN # 0.13 x10^3u/L (0.00-0.03); IMMATURE GRAN % 1.5 % (0.00-0.4); Lymphocyte (Absolute #) 0.56 x10^3/uL (1.0-4.6); Lymphocytes % 6.6 % (24.0-44.0); Mean Cell Volume 86.7 fL (78-100); Mean Corpuscular Hemoglobin 28.6 pg (26-32); Mean Corpuscular Hgb Concent. 32.9 g/dL (32-36); Monocyte (Absolute #) 0.73 x10^3/uL (0.0-1.3); Monocytes % 8.6 % (0.0-12.0); Platelet Count 301 x10^3/uL (150-450); Red Blood Count 3.99 x10^6/uL (4.1-5.6); Red Cell Distribution Width 14.3 % (11.5-14.0); White Blood Count 8.5 x10^3/uL (4.0-10.5)
[2022-09-09 17:37] LABS: ALBUMIN 3.4 g/dL (3.5-5.0); ANION GAP 16.4 MEQ/L (5-15); BILIRUBIN,TOTAL 1.2 mg/dL (0.2-1.3); Calcium 8.5 mg/dL (8.4-10.2); Creatinine 1 1.67 mg/dL (0.66-1.25); EST GLOMERULAR FILTRATION RATE 43.1 ML/MIN; Potassium 5.2 mmol/L (3.5-5.1); Total Protein 6.8 g/dL (6.3-8.2)
[2022-09-09] MEDS ORDERED: ROCEPHIN 1 Gm-D5w 50 ml Bag** 1 G/50 ML IVPB IV STA (18:06)
[2022-09-09 18:19] VITALS: O2SAT 94
[2022-09-09] MEDS ORDERED: ROCEPHIN 1 Gm-D5w 50 ml Bag** 1 G/50 ML IVPB IV ONE (18:25)
[2022-09-09 18:29] VITALS: BP 148/79; PULSE 77
[2022-09-09 22:50] LABS: Slide Review 1 YES
== END 2022-09-09 19:03 | disposition short-term general hospital (02) ==
LOC: ED 14:16
DX: N13.2 Hydronephrosis with renal and ureteral calculous obstruction (principal); E87.6 Hypokalemia; N17.9 Acute kidney failure, unspecified; N39.0 Urinary tract infection, site not specified; N40.0 Benign prostatic hyperplasia without lower urinary tract symptoms; K44.9 Diaphragmatic hernia without obstruction or gangrene; K57.90 Diverticulosis of intestine, part unspecified, without perforation or abscess without bleeding; K76.89 Other specified diseases of liver; I25.10 Atherosclerotic heart disease of native coronary artery without angina pectoris; E78.5 Hyperlipidemia, unspecified; I10 Essential (primary) hypertension; Z79.899 Other long term (current) drug therapy; Z28.310 Unvaccinated for COVID-19
CPT/HCPCS: 36000; 36415; 51702; 74176; 80053; 81001; 85025; 96365; 96372; 99285; J0696; J1885